=== PATIENT | male | born 1945 | race Hispanic/Latino ===

== ENCOUNTER 2018-01-20 07:06 | Emergency (ER) | payer MEDICARE, OTHER ==
[2018-01-20 07:06] VITALS: BMI 29.5
--- NOTE | 2018-01-20 07:35 | ED PDOC ---
Arrival/HPI - General Historian: Patient - History of Present Illness Time/Duration: < week Symptom Onset: Sudden Symptom Course: Worsening <Kyle Chowdhury - Last Filed: 01/20/18 08:10> <Danna Peres - Last Filed: 01/20/18 09:13> - General Time Seen by Provider: 01/20/18 07:11 - History of Present Illness Narrative History of Present Illness (Text): 01/20/18 07:32 Patient is a 72 year old male with a past medical history of BPH, vertigo, and HTN who presents to the ED via EMS for dizziness. Patient says for the past 2 days he has noticed his allergies getting worse and admits to cough productive of green sputum with rhinorrhea. Patient says when he woke up this morning and got out of bed he felt a little lightheaded so he had to sit back down. He denies loss of consciousness, head trauma, and feeling like the room is spinning. Patient's became worried and called for an ambulance. Per EMS, as they were leaving, patient insisted on walking down the stairs himself and he became dizzy and appeared somnolent but did not lose consciousness. Patient says he has not been eating as much the past couple of days due to decreased appetite. Patient denies fever, chills, headache, sore throat, ear pain, chest pain, SOB, palpitations, abdominal pain, N&V, diarrhea, dysuria, and lower extremity pain/swelling. PMH: BPH, vertigo, and HTN Meds: Flomax, atenolol Allergies: statins PSH: Gopal fundoplication SH: former smoker (1 PPD x50 years, quit 6 years ago and now uses lozenges) ( Danna Peres) Past Medical History - Provider Review Nursing Documentation Reviewed: Yes <Kyle Chowdhury - Last Filed: 01/20/18 08:10> - Infectious Disease Hx of Infectious Diseases: None - Tetanus Immunization Tetanus Immunization: Unknown - Cardiac Hx Hypertension: Yes - Pulmonary Hx Respiratory Disorders: No - Neurological Hx Neurological Disorder: No - HEENT Hx HEENT Disorder: No - Renal Hx Kidney Stones: Yes - Endocrine/Metabolic Hx Endocrine Disorders: No - Hematological/Oncological Hx Blood Disorders: No - Integumentary Hx Dermatological Disorder: No - Musculoskeletal/Rheumatological Hx Musculoskeletal Disorders: Yes Hx Arthritis: Yes - Gastrointestinal Hx Gastrointestinal Disorders: No - Genitourinary/Gynecological Hx Genitourinary Disorders: No - Psychiatric Hx Psychophysiologic Disorder: No Hx Substance Use: No - Past Surgical History Past Surgical History: No Previous - Suicidal Assessment Feels Threatened In Home Enviroment: No <Danna Peres - Last Filed: 01/20/18 09:13> Family/Social History - Physician Review Nursing Documentation Reviewed: Yes Family/Social History: Unknown Family HX <Kyle Chowdhury - Last Filed: 01/20/18 08:10> Smoking Status: Former Smoker Hx Alcohol Use: Yes Frequency of alcohol use: Socially Hx Substance Use: No Hx Substance Use Treatment: No <Danna Peres - Last Filed: 01/20/18 09:13> Allergies/Home Meds <Kyle Chowdhury - Last Filed: 01/20/18 08:10> <Danna Peres - Last Filed: 01/20/18 09:13> Allergies/Adverse Reactions: Allergies statins Allergy (Uncoded 01/20/18 07:18) FATIGUE Home Medications: Home Meds Medication Instructions Recorded Confirmed Atenolol [Tenormin] 50 mg PO DAILY 01/20/18 01/20/18 Review of Systems - Physician Review All systems were reviewed & negative as marked: Yes - Review of Systems Constitutional: Normal. absent: Fevers Eyes: Normal. absent: Vision Changes, Eye Pain ENT: Rhinorrhea. absent: Hearing Changes, Sore Throat, Sinus Congestion Respiratory: Cough, Sputum (green). absent: SOB, Wheezing Cardiovascular: Normal. absent: Chest Pain, Palpitations, Edema, Calf Pain, Syncope Gastrointestinal: Appetite Changes (decreased). absent: Abdominal Pain, Constipation, Diarrhea, Nausea, Vomiting Genitourinary Male: Normal. absent: Dysuria Musculoskeletal: Normal. absent: Myalgias Skin: Normal. absent: Rash Neurological: Dizziness. absent: Headache, Focal Weakness, Speech Changes, Facial Droop <Danna Peres - Last Filed: 01/20/18 09:13> Physical Exam Vital Signs Reviewed: Yes <Kyle Chowdhury - Last Filed: 01/20/18 08:10> Blood Pressure: Normal Pulse: Regular Respiratory Rate: Normal Appearance: Positive for: Well-Appearing, Non-Toxic, Comfortable Pain Distress: None Mental Status: Positive for: Alert and Oriented X 3 - Systems Exam Head: Present: Atraumatic, Normocephalic Pupils: Present: PERRL Extroacular Muscles: Present: EOMI Conjunctiva: Present: Normal. No: Injected Ears: Present: Normal Canal, Other (cerumen bilateraly partially obstructing view of TM) Mouth: Present: Moist Mucous Membranes Pharnyx: Present: Normal. No: ERYTHEMA, EXUDATE, TONSILS ENLARGED Nose (External): Present: Atraumatic Neck: Present: Normal Range of Motion, Trachea Midline. No: MIDLINE TENDERNESS , Lymphadenopathy Respiratory/Chest: Present: Good Air Exchange, Rhonchi. No: Respiratory Distress, Accessory Muscle Use, Wheezes, Rales Cardiovascular: Present: Regular Rate and Rhythm, Normal S1, S2. No: Murmurs Abdomen: Present: Normal Bowel Sounds. No: Tenderness, Distention, Peritoneal Signs Back: Present: Normal Inspection Upper Extremity: Present: Normal Inspection. No: Cyanosis, Edema Lower Extremity: Present: Normal Inspection. No: Edema Neurological: Present: GCS=15, Speech Normal Skin: Present: Warm, Dry, Normal Color. No: Rashes Lymphatic: No: Cervical Adenopathy Psychiatric: Present: Alert, Oriented x 3, Normal Insight, Normal Concentration <Danna Peres - Last Filed: 01/20/18 09:13> Vital Signs Temp Pulse Resp BP Pulse Ox 01/20/18 07:06 98.7 F 84 18 116/81 98 Medical Decision Making - Lab Interpretations I have reviewed the lab results: Yes - RAD Interpretation Small Parts Shaper Operator: Radiologist - EKG Interpretation Interpreted by ED Physician: Yes Type: 12 lead EKG <Kyle Chowdhury - Last Filed: 01/20/18 08:10> <Danna Peres - Last Filed: 01/20/18 09:13> ED Course and Treatment: 01/20/18 08:09 Seen and examined with the resident. Our history and physical exam reveals a gentleman complaining of a cough productive of sputum with URI symptoms for the last several days. This morning he got up and was dizzy also. He denies chest pain or dyspnea. No fever. No chills. No palpitations. No abdominal pain nausea or vomiting. He also complains that his voice has become hoarse. He does not appear ill. 05/12/18 In agreement with resident note, which includes further HPI details. Patient was seen and evaluated with resident, came up with plan and treatment together. (Kyle Chowdhury) 01/20/18 08:42 Afebrile, no leukocytosis CXR shows no active disease Orthostatic vital signs within normal limits Troponin negative Influenza A positive - outside of the 48 hour window for tamiflu so will send him home with instructions for tylenol prn and fluids (Danna Peres) - Lab Interpretations Lab Results: 01/20/18 07:40 01/20/18 07:40 Lab Results 01/20/18 08:05: POC Glucose (mg/dL) 82 01/20/18 07:40: Sodium 142, Potassium 3.6, Chloride 102, Carbon Dioxide 25, Anion Gap 19, BUN 7, Creatinine 0.7 L, Est GFR ( Amer) > 60, Est GFR (Non -Af Amer) > 60, Random Glucose 94, Calcium 8.4, Phosphorus 3.3, Magnesium 2.0, Total Bilirubin 0.5, AST 43, ALT 25, Alkaline Phosphatase 68, Troponin I < 0.01 , Total Protein 7.2, Albumin 4.0, Globulin 3.2, Albumin/Globulin Ratio 1.2 01/20/18 07:40: WBC 8.1, RBC 4.99, Hgb 16.7, Hct 47.2, MCV 94.6, MCH 33.5, MCHC 35.4, RDW 14.9 H, Plt Count 178, MPV 9.9, Gran % 62.0, Lymph % (Auto) 24.9, [place] % (Auto) 9.7 H, Eos % (Auto) 3.0, Baso % (Auto) 0.4, Gran # 5.00, Lymph # ( Auto) 2.0, [place] # (Auto) 0.8 H, Eos # (Auto) 0.2, Baso # (Auto) 0.03 - RAD Interpretation Radiology Orders: 01/20/18 07:30 CHEST PORTABLE [RAD] Stat - PA / INTERNAL CONTROLS SPECIALIST / Resident Statement MD/DO has reviewed & agrees with the documentation as recorded. MD/DO has examined the patient and agrees with the treatment plan. - Scribe Statement The provider has reviewed the documentation as recorded by the Scribe <Kyle Chowdhury - Last Filed: 01/20/18 08:10> - PA / INTERNAL CONTROLS SPECIALIST / Resident Statement / has reviewed & agrees with the documentation as recorded. MD/ has examined the patient and agrees with the treatment plan. <Danna Peres - Last Filed: 01/20/18 09:13> - Scribe Statement Tiffany Amaya Provider Scribe Attestation: All medical record entries made by the Scribe were at my direction and personally dictated by me. I have reviewed the chart and agree that the record accurately reflects my personal performance of the history, physical exam, medical decision making, and the department course for this patient. I have also personally directed, reviewed, and agree with the discharge instructions and disposition. (Kyle Chowdhury) Disposition/Present on Arrival <Kyle Chowdhury - Last Filed: 01/20/18 08:10> - Present on Arrival Any Indicators Present on Arrival: No History of DVT/PE: No History of Uncontrolled Diabetes: No Urinary Catheter: No History of Decub. Ulcer: No History Surgical Site Infection Following: None - Disposition Have Diagnosis and Disposition been Completed?: Yes Disposition Time: 09:04 Patient Plan: Discharge <Danna Peres - Last Filed: 01/20/18 09:13> - Disposition Diagnosis: Influenza A Condition: STABLE Discharge Instructions (ExitCare): Flu, Adult (DC) Additional Instructions: Please take Tylenol or Advil as needed and drink extra fluids to keep you hydrated. Please follow up with your primary care provider and return to the ED if you experience any new or worsening symptoms.
[2018-01-20 08:05] LABS: BASO # 0.03 K/mm3 (0.0-2.0); BASO % 0.4 % (0.0-3.0); EOS # 0.2 (0.0-0.7); HEMOGLOBIN 16.7 g/dL (14.0-18.0); LYMPH % 24.9 % (22.0-35.0); MEAN CELL VOLUME 94.6 fl (80.0-105.0); MEAN CORPUSCULAR HEMOGLOBIN 33.5 pg (25.0-35.0); MEAN CORPUSCULAR HGB CONC 35.4 g/dl (31.0-37.0); MEAN PLATELET VOLUME 9.9 fl (7.0-11.0); MONO # 0.8 (0.1-0.6); MONO % 9.7 % (1.0-6.0); RBC 4.99 10^6/uL (3.5-6.1); RED CELL DISTRIBUTION WIDTH 14.9 % (11.5-14.5); WHITE BLOOD COUNT 8.1 10^3/ul (4.5-11.0)
[2018-01-20 08:21] LABS: ALB/GLOB RATIO 1.2 (1.1-1.8); ALT/SGPT 25 U/L (7-56); AST/SGOT 43 U/L (17-59); BLOOD UREA NITROGEN 7 mg/dL (7-21); CALCIUM 8.4 mg/dL (8.4-10.5); GFR AFRICAN-AMERICAN > 60; GFR NON-AFRICAN AMERICAN > 60
[2018-01-20 08:32] LABS: TROPONIN I < 0.01 ng/mL
--- NOTE | 2018-01-20 09:25 | RAD ---
HISTORY: cough, dizziness COMPARISON: No prior. FINDINGS: LUNGS: Lung downey appear mildly over inflated ; rule out underlying emphysema or COPD. Minor bibasilar atelectasis and/or scarring. PLEURA: No significant pleural effusion identified, no pneumothorax apparent. CARDIOVASCULAR: Cardiomegaly. . OSSEOUS STRUCTURES: No significant abnormalities. VISUALIZED UPPER ABDOMEN: Normal. OTHER FINDINGS: None. IMPRESSION: Lung downey appear mildly over inflated ; rule out underlying emphysema or COPD. Minor bibasilar atelectasis and/or scarring.
[2018-01-20 09:29] VITALS: BP 125/71; PULSE 95; RESP 19; TEMP 98; O2SAT 95
--- NOTE | 2018-01-20 09:50 | CARD ---
APPROVED REPORT EKG Measurement Heart [id number] <Conclusion> Normal sinus rhythm Leftward axis
== END 2018-01-20 09:17 | disposition home or self-care (01) ==
LOC: ED 07:06
DX: J10.1 Influenza due to other identified influenza virus with other respiratory manifestations (principal); I10 Essential (primary) hypertension; Z87.891 Personal history of nicotine dependence